=== PATIENT | male | born 1945 | race Caucasian/White ===

== ENCOUNTER 2022-02-28 11:48 | Emergency (ER) | payer MEDICARE, OTHER ==
[~2022-02-28] VITALS: Ht 170.2 cm; Wt 77.1 kg
--- NOTE | 2022-02-28 11:48 | NUR ---
[facility] TO ER BED 12
[2022-02-28 11:53] VITALS: BP 133/77
--- NOTE | 2022-02-28 12:25 | NUR ---
PATIENT TAKEN TO CT VIA [facility]
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
--- NOTE | 2022-02-28 13:29 | NUR ---
PT PLACED IN LEFT SHOULDER SLING AND GIVEN ICE PACK
[2022-02-28 13:47] LABS: BASOPHILS % (AUTO) 0.4 % (0.0-2.0); EOSINOPHILS % (AUTO) 0.2 % (0.0-4.0); HEMATOCRIT 39.5 % (36-52); HEMOGLOBIN 13.6 g/dL (12.0-18.0); LYMPHOCYTES # (AUTO) 1.5 K/uL (2.0-11.5); MEAN CORPUSCULAR HEMOGLOBIN 31 pg (27-31); MEAN CORPUSCULAR HGB CONC 34 g/dL (33-37); MEAN CORPUSCULAR VOLUME 90.8 fL (80-94); MONOCYTES # (AUTO) 0.9 K/uL (0.8-1.0); MONOCYTES % (AUTO) 9.6 % (1.7-9.3); NEUTROPHILS # (AUTO) 7.3 K/uL (1.8-7.7); NEUTROPHILS % (AUTO) 74.8 % (42.2-75.2); PLATELET COUNT (AUTO) 194 K/uL (140-450); RED BLOOD CELL COUNT(AUTO) 4.35 MIL/uL (4.20-6.10); RED CELL DISTRIBUTION WIDTH 15.2 % (11.6-13.7); WHITE BLOOD COUNT (AUTO) 9.7 K/uL (4.8-10.8)
[2022-02-28 14:09] LABS: PROTHROMBIN TIME 10.1 secs (10.8-13.4)
[2022-02-28 14:10] LABS: ALBUMIN 3.4 g/dL (3.4-5.0); ASPARTATE AMINOTRANSFERASE 26 U/L (15-37); CARBON DIOXIDE 24.8 mmol/L (21-32); CREATININE 0.9 mg/dL (0.6-1.3); GLUCOSE 90 mg/dL (74-106); POTASSIUM 3.5 mmol/L (3.5-5.1); SODIUM SERUM 136 mmol/L (136-145); TOTAL BILIRUBIN 0.6 mg/dL (0.0-1.0); UREA NITROGEN, BLOOD 11 mg/dL (7-18)
[2022-02-28 14:53] LABS: ANION GAP 14.1 (8-16); CHLORIDE 99 mmol/L (98-107)
[2022-02-28 14:54] LABS: SALICYLATE < 2.8 mg/dL (2.8-20.0)
--- NOTE | 2022-02-28 14:55 | NUR ---
Patient to be transferred to [facility]. Is being transferred due to HIGHER LEVEL OF CARE. Receiving facility has accepting physician and available space. ER physician has signed transfer form. Patient or responsible constitution party has agreed to transfer and signed form. Patient belongings inventoried and will be sent with patient. Copy of nursing notes, lab reports, Physicians Orders and X-rays to be sent with patient. Report called to ONO[facility]RE at receiving facility. [facility] ambulance service has been called for transfer. ETA is 8 MIN.
--- NOTE | 2022-02-28 14:58 | NUR ---
[facility] AT BEDSIDE FOR TRANSPORT
[2022-02-28 15:05] VITALS: BP 135/84
[2022-02-28 16:26] LABS: ACETAMINOPHEN < 0.5 ug/ml (10-30)
== END 2022-02-28 15:05 | disposition short-term general hospital (02) ==
LOC: MED 11:48
DX: S42.012A Anterior displaced fracture of sternal end of left clavicle, initial encounter for closed fracture (principal); S06.5X9A Traumatic subdural hemorrhage with loss of consciousness of unspecified duration, initial encounter; F10.129 Alcohol abuse with intoxication, unspecified; Z98.890 Other specified postprocedural states; W19.XXXA Unspecified fall, initial encounter; Y93.01 Activity, walking, marching and hiking; Y92.89 Other specified places as the place of occurrence of the external cause; Y99.8 Other external cause status
CPT/HCPCS: 36415; 70450; 73030; 80053; 85025; 85610; 85730; 86886; 86900; 86901; 99285; G0480; G0482